=== PATIENT | female | born 1970 | race Caucasian/White ===

== ENCOUNTER → 2020-10-28 | Outpatient (CLI) | payer BC ==
--- NOTE | 2020-10-31 12:05 | MM ---
Reason for exam: screening (asymptomatic). Last mammogram was performed 4 years and 8 months ago. History: Family history of breast cancer in paternal grandmother at age 60. Excisional biopsy of the left breast, May 29, 2006. Benign left mammotome panel of the left breast, May 03, 2006. Took hormonal contraceptives for 3 years beginning at age 14. Physical Findings: A clinical breast exam by your physician is recommended on an annual basis and results should be correlated with mammographic findings. MG 3D Screening Mammo W/Cad Bilateral CC and MLO view(s) were taken. Prior study comparison: March 07, 2016, bilateral MG 3d diag mammo w/cad [facility]. February 18, 2015, bilateral MG diagnostic mammo w CAD [facility]. The breast tissue is heterogeneously dense. This may lower the sensitivity of mammography. There are benign appearing round calcifications bilaterally. Previous mammotome biopsy in the left breast. There is chronic nodularity in the left breast. There is no discrete abnormality. ASSESSMENT: Benign, BI-RAD 2 RECOMMENDATION: Routine screening mammogram of both breasts in 1 year.
== END | disposition home or self-care (01) ==
LOC: RADMAMWWP 07:42
PROVIDERS: ATTEND Obstetrics & Gynecology Obstetrics
DX: Z12.31 Encounter for screening mammogram for malignant neoplasm of breast (principal); Z80.3 Family history of malignant neoplasm of breast
CPT/HCPCS: 77063; 77067

== ENCOUNTER → 2021-11-06 | Outpatient (CLI) | payer BC ==
--- NOTE | 2021-11-07 09:42 | MM ---
Reason for exam: screening (asymptomatic). Last mammogram was performed 1 year ago. History: Family history of breast cancer in paternal grandmother at age 60. Excisional biopsy of the left breast, May 29, 2006. Benign left mammotome panel of the left breast, May 03, 2006. Took hormonal contraceptives for 3 years beginning at age 14. Physical Findings: A clinical breast exam by your physician is recommended on an annual basis and results should be correlated with mammographic findings. MG 3D Screening Mammo W/Cad Bilateral CC and MLO view(s) were taken. XCCL view(s) were taken of the right breast. Prior study comparison: October 28, 2020, bilateral MG 3d screening mammo w/cad. March 07, 2016, bilateral MG 3d diag mammo w/cad [facility]. The breast tissue is heterogeneously dense. This may lower the sensitivity of mammography. Finding: There is a 5 mm obscured oval mass in the lower quadrant, anterior, middle position of the right breast, not clearly seen on priors. Previous mammotome biopsy in the left breast. There is a chronic nodularity bilaterally axillary region. ASSESSMENT: Incomplete: need additional imaging evaluation, BI-RAD 0 RECOMMENDATION: Ultrasound of the right breast. [facility] will attempt to contact patient to return for ultrasound.
== END | disposition home or self-care (01) ==
LOC: RADMAMWWP 09:06
PROVIDERS: ATTEND Obstetrics & Gynecology
DX: Z12.31 Encounter for screening mammogram for malignant neoplasm of breast (principal); Z80.3 Family history of malignant neoplasm of breast
CPT/HCPCS: 77063; 77067

== ENCOUNTER → 2021-11-08 | Outpatient (CLI) | payer BC ==
--- NOTE | 2021-11-08 10:31 | USB ---
Reason for exam: additional evaluation requested from abnormal screening. History: Family history of breast cancer in paternal grandmother at age 60. Excisional biopsy of the left breast, May 29, 2006. Benign left mammotome panel of the left breast, May 03, 2006. Took hormonal contraceptives for 3 years beginning at age 14. Physical Findings: A clinical breast exam by your physician is recommended on an annual basis and results should be correlated with mammographic findings. US Breast Workup Limited RT Technologist: Viviane Villa Right limited breast ultrasound including focal area of concern, retroareolar and axilla demonstrates a 0.3 x 0.5 x 0.3cm oval, circumscribed, cystic lesion at 6 o'clock, 3cm from nipple and duct ectasia at the nipple. Results were given to the patient verbally at the time of the exam. ASSESSMENT: Benign, BI-RAD 2 RECOMMENDATION: Return to routine screening mammogram schedule for both breasts.
== END | disposition home or self-care (01) ==
LOC: RADUSWWP 09:15
PROVIDERS: ATTEND Obstetrics & Gynecology
DX: N60.41 Mammary duct ectasia of right breast (principal); N60.01 Solitary cyst of right breast; Z80.3 Family history of malignant neoplasm of breast

== ENCOUNTER → 2022-10-22 | Outpatient (CLI) | payer BC ==
--- NOTE | 2022-10-22 08:22 | MM ---
Reason for Exam: Clinical finding. Last screening mammogram was performed 11 month(s) ago. Indicated Problems: Lump or thickening of the left side. Patient History: Menarche at age 11. First Full-Term at age 23. Postmenopausal. Hormonal Contraceptives for 3 years from age 14 until age 17. 05/29/2006, Excisional Biopsy on the Left side. 05/03/2006, Benign Core Biopsy on the left side. Paternal grandmother had breast cancer, age 60. Risk Values: Fernanda 5 year model risk: 1.9%. NCI Lifetime model risk: 13.6%. Prior Study Comparison: 12/04/2013 Bilateral Diagnostic Mammogram, [facility]. 07/06/2014 Left Diagnostic Mammogram, [facility]. 02/18/2015 Bilateral Diagnostic Mammogram, [facility]. 03/07/2016 Bilateral Diagnostic Mammogram, [facility]. 10/28/2020 Bilateral Screening Mammogram, [facility]. 11/06/2021 Bilateral Screening Mammogram, [facility]. Tissue Density: The breast tissue is heterogeneously dense. This may lower the sensitivity of mammography. Findings: Analyzed By CAD. No discrete abnormality seen at the site of clinical concern left 9:00 position. Ultrasound is recommended. Previous biopsy upper outer left breast. No suspicious calcifications are present. Overall Assessment: Incomplete: need additional imaging evaluation, BI-RAD 0 Management: Diagnostic Breast Ultrasound of the left breast. A clinical breast exam by your physician is recommended on an annual basis and results should be correlated with mammographic findings. This exam should not preclude additional follow-up of suspicious palpable abnormalities. Results were given to the patient verbally at the time of exam. Electronically signed and approved by: Rizwan Rahman M.D. Radiologis
--- NOTE | 2022-10-22 08:54 | USB ---
Reason for Exam: Clinical finding. Patient History: Menarche at age 11. First Full-Term at age 23. Postmenopausal. Hormonal Contraceptives for 3 years from age 14 until age 17. 05/29/2006, Excisional Biopsy on the Left side. 05/03/2006, Benign Core Biopsy on the left side. Paternal grandmother had breast cancer, age 60. Risk Values: Efrnanda 5 year model risk: 1.9%. NCI Lifetime model risk: 13.6%. Technique: Method: Targeted. Prior Study Comparison: 03/07/2016 Bilateral Diagnostic Mammogram, [facility]. 10/28/2020 Bilateral Screening Mammogram, [facility]. 11/06/2021 Bilateral Screening Mammogram, [facility]. Findings: The area of palpable concern of the left breast, the axilla of the left breast and the retroareolar of the left breast were scanned. Irregular hypoechoic lesion is 5 cm from the nipple at the site of clinical concern could reflect scar however tissue diagnosis is recommended. Area of concern measures 1.2 x 0.9 cm. Normal-appearing lymph node identified. Overall Assessment: Suspicious, BI-RAD 4 Management: Ultrasound Core Biopsy of the left breast. A clinical breast exam by your physician is recommended on an annual basis and results should be correlated with mammographic findings. This exam should not preclude additional follow-up of suspicious palpable abnormalities. Results were given to the patient verbally at the time of exam. Electronically signed and approved by: Rizwan Rahman M.D. Radiologis
== END | disposition home or self-care (01) ==
LOC: RADMAMWWP 07:43
PROVIDERS: ATTEND Obstetrics & Gynecology Obstetrics
DX: N64.4 Mastodynia (principal); Z78.0 Asymptomatic menopausal state; Z80.3 Family history of malignant neoplasm of breast
CPT/HCPCS: 77062; 77066

== ENCOUNTER → 2023-05-03 | Outpatient (CLI) | payer BC ==
--- NOTE | 2023-05-03 08:31 | USB ---
Reason for Exam: Follow-up at short interval from prior study. Patient History: Menarche at age 11. First Full-Term at age 23. Postmenopausal. Hormonal Contraceptives for 3 years from age 14 until age 17. 05/29/2006, Excisional Biopsy on the Left side. 05/03/2006, Benign Core Biopsy on the left side. 11/07/2022, US discontinued breast bx LT on the left side. Paternal grandmother had breast cancer, age 60. Risk Values: Fernanda 5 year model risk: 1.9%. NCI Lifetime model risk: 13.6%. Technique: Method: Targeted. Prior Study Comparison: 10/28/2020 Bilateral Screening Mammogram, [facility]. 11/06/2021 Bilateral Screening Mammogram, [facility]. 10/22/2022 Bilateral MG 3D diag mammo w/cad [facility], [facility]. 10/22/2022 Left US breast limited LT, [facility]. Findings: The lateral section of the breast of the left breast, the axilla of the left breast and the retroareolar of the left breast were scanned. Targeted ultrasound left breast from 2 to 3:00 position evaluation the nipple and axillary tail was performed. There is an irregular hypoechoic lesion within the left breast at site of scarring measuring 0.9 x 0.9 x 0.9 cm. This demonstrates antiparallel appearance. No internal color flow identified. Overall this is similar to prior ultrasound on 10/22/2022. This was less apparent on discontinued biopsy 11/07/2022. Lack of change suggests post excisional scarring. Overall Assessment: Probably benign, BI-RAD 3 Management: Diagnostic Mammogram of both breasts in 6 months. Diagnostic Breast Ultrasound of the left breast in 6 months. A clinical breast exam by your physician is recommended on an annual basis and results should be correlated with mammographic findings. This exam should not preclude additional follow-up of suspicious palpable abnormalities. Results were given to the patient verbally at the time of exam. Electronically signed and approved by: Skinny Willson D.O.
== END | disposition home or self-care (01) ==
LOC: RADUSWWP 07:46
PROVIDERS: ATTEND Obstetrics & Gynecology Obstetrics
DX: N63.20 Unspecified lump in the left breast, unspecified quadrant (principal); Z78.0 Asymptomatic menopausal state; Z80.3 Family history of malignant neoplasm of breast

== ENCOUNTER → 2023-11-29 | Outpatient (CLI) | payer BC ==
--- NOTE | 2023-11-29 08:09 | MM ---
Reason for Exam: Follow-up at short interval from prior study. Last mammogram was performed 1 year(s) and 1 month(s) ago. Patient History: Menarche at age 11. First Full-Term at age 23. Postmenopausal. Hormonal Contraceptives for 3 years from age 14 until age 17. 05/29/2006, Excisional Biopsy on the Left side. 05/03/2006, Benign Core Biopsy on the left side. 11/07/2022, US discontinued breast bx LT on the left side. Paternal grandmother had breast cancer, age 60. Risk Values: Fernanda 5 year model risk: 2.0%. NCI Lifetime model risk: 13.3%. Prior Study Comparison: 02/18/2015 Bilateral Diagnostic Mammogram, [facility]. 10/28/2020 Bilateral Screening Mammogram, [facility]. 11/06/2021 Bilateral Screening Mammogram, [facility]. 10/22/2022 Bilateral MG 3D diag mammo w/cad [facility], [facility]. 05/03/2023 Left US breast limited LT, [facility]. Tissue Density: The breasts are heterogeneously dense, which may obscure small masses. Findings: Analyzed By CAD. The pattern is symmetrical. Pattern is stable. The core marker is within the left breast. Nodularity is present bilaterally. No significant interval changes are evident No suspicious groups of microcalcifications, spiculated or lobular masses, architectural distortion or other secondary signs of malignancy are mammographically apparent. Overall Assessment: Benign, BI-RAD 2 Management: Screening Mammogram of both breasts in 1 year. A negative mammogram report should not preclude additional follow up of suspicious palpable abnormalities. Patient should continue monthly self breast exam. A clinical breast exam by your physician is recommended on an annual basis and results should be correlated with mammographic findings. Note on Fernanda scores and lifetime risk: 1. A Fernanda score greater than 3% is considered moderate risk. If this is the case, consider specialist referral to assess eligibility for a risk reducing agent. 2. If overall lifetime risk for the development of breast cancer is 20% or higher, the patient may qualify for future screening with alternating mammogram and breast MRI. Electronically signed and approved by: Enoc Ghosh D.O. Radiologis
== END | disposition home or self-care (01) ==
LOC: RADMAMWWP 11-13 08:54
PROVIDERS: ATTEND Obstetrics & Gynecology Obstetrics
DX: Z53.9 Procedure and treatment not carried out, unspecified reason (principal)
CPT/HCPCS: 77062; 77066